=== PATIENT | male | born 1945 | race Caucasian/White ===

== ENCOUNTER 2016-08-10 06:07 | Day surgery (SDC) | payer MEDICARE, OTHER ==
--- NOTE | ~2016-08-10 | OP ---
Record Of Operation [facility] [address] [place]. 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 POSTOPERATIVE DIAGNOSIS: Left L4-5 disk herniation and foraminal stenosis with lumbar radiculopathy. PROCEDURES: Left L4-5 microdiskectomy, use of operative microscope, minimal access spine technology, and intraoperative O-arm CT scan with computer navigation. SURGEON: Cornelius Severino DO. ANESTHESIA: General. ESTIMATED BLOOD LOSS: 10 mL. COMPLICATIONS: None. INDICATIONS: The patient is a pleasant 71-year-old with intractable left leg pain, failed conservative treatment. After discussion of the risks and benefits, he elected to proceed with surgical intervention. DESCRIPTION OF PROCEDURE: I identified the patient in the holding area. Consent was obtained. Went to the operating room. Underwent general anesthesia with endotracheal intubation. Prepped and draped in the usual sterile fashion. Operative safety pause was performed, then we proceeded with the surgery. O-arm registration frame was placed in the iliac crest. The O-arm was brought in for intraoperative CT scan. Computer registration materials were verified. Under computer guidance, a left longitudinal incision was made over the L4-5 level taken down to the fascial layer. Tube dilators were used to minimally invasively dissect down to the left L4-5 interspace. Operative microscope was brought in. A vasquez was used to perform a laminotomy. Soha performed a foraminotomy. Disk space was identified, incised with a knife. Free disk material was removed with the pituitary. The L4 and L5 nerve roots were identified and free of compression at the end of the case. Irrigation was performed. Hemostasis was achieved. 40 mg Depo-Medrol was injected over the nerve roots. Layered closure was performed. Sterile dressings were applied. The patient was awoken and extubated, and taken to the recovery room in stable condition. OPERATIVE FINDINGS: Left L4-5 disk herniation. CLAY/SERINA Cornelius Duke Record Of Operation [address] [place]. [address] NAME: KELLY MAY JR : 49 STATUS : [place] [facility] [place] PAT#: [id number] AGE: 71 ADM/REG DATE : 08/10/16 MR#: [id number] REPORT SERV DATE: 08/10/16 DICTATED BY: CORNEILUS SEVERINO DATE: 08/10/16 REPORT STATUS : Draft TRANSCRIBED BY: MODL DATE: 08/10/16 DO Maycol / [id number] CC: DO Martín Giron
[~2016-08-10 06:07] MED LIST: ALEVE220 MG PO; B COMPLETE PO; CRESTOR40 MG PO; DAYQUIL; PRAVACHOL40 MG PO; PRIN10 PO
[2016-08-10 06:48] LABS: HEMATOCRIT 39.1 % (40.0-51.0); HEMOGLOBIN 13.9 g/dL (13.6-17.8)
[2016-08-10 07:02] LABS: BUN (BLOOD UREA NITROGEN) 23 MG/DL (6-23); CALCIUM, SERUM 9.3 MG/DL (8.5-10.4); CHLORIDE, SERUM 108 MMOL/L (96-112); CO2 (CARBON DIOXIDE) 30 MMOL/L (24-34); CREATININE 1.19 MG/DL (0.70-1.30); GFR AFRICAN AMERICAN 72 ML/MIN (>=60); GFR NON AFRICAN AMERICAN 62 ML/MIN (>=60); GLUCOSE, SERUM 104 MG/DL (60-99); POTASSIUM, SERUM 4.1 MMOL/L (3.5-5.3); SODIUM, SERUM 142 MMOL/L (135-148)
== END 2016-08-10 15:54 | disposition home or self-care (01) ==
LOC: SDC 06:07
PROVIDERS: Orthopaedic Surgery
PROC: 01NB0ZZ Release Lumbar Nerve, Open Approach (ICD-10-PCS; principal; 2016-08-10 07:30)
DX: M51.16 Intervertebral disc disorders with radiculopathy, lumbar region (principal); M48.06 Spinal stenosis, lumbar region; I10 Essential (primary) hypertension; G57.92 Unspecified mononeuropathy of left lower limb; E78.00 Pure hypercholesterolemia, unspecified; K64.9 Unspecified hemorrhoids; N40.0 Benign prostatic hyperplasia without lower urinary tract symptoms; Z79.899 Other long term (current) drug therapy; Z90.89 Acquired absence of other organs; Z98.890 Other specified postprocedural states
CPT/HCPCS: 80048; 85014; 85018; 88304; 88311; 93005; A9270-GY; J0690; J1030; J2250; J2405; J2710; J3010